=== PATIENT | female | born 1950 | race Caucasian/White ===

== ENCOUNTER → 2020-10-22 | Outpatient (CLI) | payer MEDICARE ==
[~2020-10-22] MED LIST: OMNIPAQUE 350 MG/ML, 75ML BOTTLE ONE
== END | disposition home or self-care (01) ==
LOC: RAD 12:42
PROVIDERS: ATTEND Psychiatry & Neurology Neurology
DX: H05.20 Unspecified exophthalmos (principal); H46.8 Other optic neuritis; G70.00 Myasthenia gravis without (acute) exacerbation; I63.9 Cerebral infarction, unspecified
CPT/HCPCS: 70470; 70482; Q9967